=== PATIENT | female | born 1950 | race Caucasian/White ===

== ENCOUNTER 2018-12-05 15:49 | Emergency (ER) | payer OTHER, MEDICARE ==
[2018-12-05 16:12] VITALS: BP 135/98; PULSE 64; TEMP 98.3; BMI 24.0
--- NOTE | 2018-12-05 16:17 | PDOC ---
History of Present Illness - General Chief Complaint: Chest Pain Stated Complaint: CHEST PAIN Time Seen by Provider: 12/05/18 16:16 - History of Present Illness Initial Comments: 12/05/18 17:28 HPI: 68 y/o F with hx of polymylagia rheumatica, chronic pain on chronic narcotics, hypothyroid, panic disorder, HTN presenting with 2 days of midsternal chest pain and wholebody pain. She states she was in an argument wither her mother and became very stressed and started having the pain. The chest pain is nonradiating and is described as "annoying sensation;" denies any sharpness, pressure like, crushing. Pain is intermittent and different than her usual panic attacks. She denies any fever, chills, LH, AN, dizziness, palpaitations, SOB, change in vision, diaphoresis, syncope, nausea, emesis. Of note, she also reports a "knot like" pain in her stomach and her whole body. She says she is usually constipated do to the narcotic use, but last BM was yesterday after assist with self manual disimpaction. She takes sennokot but it doesnt not always work. She has been on narcotics for years and has never been weaned; reports good pain control with advil as well but needs narcotics for additional pain control. Additionally, patient's father recently and she reports decreased interest, difficulty sleeping, poor appetite, low energy; denies suicidality PMHx: as noted above ROS: as noted SHx: 0.5-1 ppd; no alcohol use; no rec drugs Allergies: NKDA Past History - Past Medical History Allergies/Adverse Reactions: Allergies Allergy/AdvReac Type Severity Reaction Status Date / Time codeine Allergy Verified 12/05/18 16:07 meperidine [From Demerol] Allergy Verified 12/05/18 16:07 NSAIDS (Non-Steroidal Allergy Verified 12/05/18 16:07 Anti-Inflamma Penicillins Allergy Verified 12/05/18 16:07 colloidal bismuth subcitrate AdvReac Verified 12/05/18 16:07 [From Pylera] metronidazole [From Pylera] AdvReac Verified 12/05/18 16:07 tetracycline [From Pylera] AdvReac Verified 12/05/18 16:07 COPD: Yes HTN: Yes Psychiatric Problems: Yes Seizures: Yes ([place]) Other medical history: polymelagia - Suicide/Smoking/Psychosocial Hx Smoking History: Never smoked Have you smoked in the past 12 months: No Information on smoking cessation initiated: No Review of Systems - Review of Systems Comments:: 12/05/18 18:07 GENERAL/CONSTITUTIONAL: No fever or chills. No weakness. HEAD, EYES, EARS, NOSE AND THROAT: No change in vision. No ear pain or discharge. No sore throat. CARDIOVASCULAR: +chest pain, no shortness of breath RESPIRATORY: No cough, wheezing, or hemoptysis. GASTROINTESTINAL: No nausea, vomiting, diarrhea or constipation. GENITOURINARY: No dysuria, frequency, or change in urination. MUSCULOSKELETAL: +joint and muscle pain SKIN: No rash NEUROLOGIC: No headache, vertigo, loss of consciousness, or change in strength/ sensation. ENDOCRINE: No increased thirst. No abnormal weight change HEMATOLOGIC/LYMPHATIC: No anemia, easy bleeding, or history of blood clots. ALLERGIC/IMMUNOLOGIC: No hives or skin allergy. *Physical Exam - Vital Signs Last Vital Signs Temp Pulse Resp BP Pulse Ox 98.3 F 64 18 135/98 96 12/05/18 16:08 12/05/18 16:08 12/05/18 16:08 12/05/18 16:08 12/05/18 16:08 - Physical Exam Comments: 12/05/18 18:08 GENERAL: Awake, alert, and fully oriented, in no acute distress HEAD: No signs of trauma, normocephalic, atraumatic EYES: PERRLA, EOMI, sclera anicteric, conjunctiva clear ENT: Auricles normal inspection, hearing grossly normal, nares patent, oropharynx clear without exudates. Moist mucosa NECK: Normal ROM, supple, no lymphadenopathy, JVD, or masses LUNGS: No distress, speaks full sentences, clear to auscultation bilaterally HEART: Regular rate and rhythm, normal S1 and S2, no murmurs, rubs or gallops, peripheral pulses normal and equal bilaterally. ABDOMEN: Soft, nontender, normoactive bowel sounds. No CVAT No guarding, no rebound. No masses EXTREMITIES : Normal inspection, Normal range of motion, no edema. No clubbing or cyanosis. NEUROLOGICAL: Cranial nerves II through XII grossly intact. Normal speech, normal gait, no focal sensorimotor deficits SKIN: Warm, Dry, normal turgor, no rashes or lesions noted ED Treatment Course - LABORATORY CBC & Chemistry Diagram: 12/05/18 18:07 12/05/18 18:07 Medical Decision Making - Medical Decision Making 12/05/18 18:08 68 y/o F with hx of polymylagia rheumatica, chronic pain on chronic narcotics, hypothyroid, panic disorder, HTN presenting with 2 days of midsternal chest pain and wholebody pain associated with depressive like symptoms. Vitals wnl. PE unremarkable -CXR, EKG -CBC, CMP, trops 12/05/18 18:45 EKG: NSR with absent MELISA, STD. Nml interval duration and axis. Nml R wave progression. Absent Q waves 12/05/18 19:[address] Allen to followup CMP, trop, and imaging *DC/Admit/Observation/Transfer Diagnosis at time of Disposition: Chest pain Qualifiers: Chest pain type: unspecified Qualified Code(s): R07.9 - Chest pain, unspecified - Discharge Dispostion Decision to Admit order: No - Referrals Referrals: Rafa Allen MD [Primary Care Provider] - - Patient Instructions - Post Discharge Activity
[2018-12-05 18:27] LABS: BASO % 1.3 % (0-2.0); EOS % 4.8 % (0-4.5); HEMATOCRIT 33.6 % (32.4-45.2); HEMOGLOBIN 11.1 GM/dL (10.7-15.3); LYMPH % 36.8 % (8-40); MCH 31.4 pg (25.7-33.7); MCHC 33.1 g/dl (32.0-36.0); MEAN CELL VOLUME 94.9 fl (80-96); MEAN PLT VOLUME 7.5 fl (7.5-11.1); MONO % 7.9 % (3.8-10.2); NEUT % 49.2 % (42.8-82.8); PLATELET COUNT 305 K/MM3 (134-434); RBC 3.54 M/mm3 (3.60-5.2); RDW 15.3 % (11.6-15.6); WHITE BLOOD COUNT 5.7 K/mm3 (4.0-10.0)
--- NOTE | 2018-12-05 18:41 | PDOC ---
Documentation entered by Ailyn Rich SCRIBE, acting as scribe for Laury Deluna DO. Laury Deluna DO: This documentation has been prepared by the Hilario hector Sammi, SCRIBE, under my direction and personally reviewed by me in its entirety. I confirm that the documentation accurately reflects all work, treatment, procedures, and medical decision making performed by me. Attending Attestation - Resident Resident Name: Radha Brady - ED Attending Attestation I have performed the following: I have examined & evaluated the patient, The case was reviewed & discussed with the resident, I agree w/resident's findings & plan, Exceptions are as noted - HPI HPI: 12/05/18 17:35 The patient is a 68 year old female, with a significant PMH of chronic pain, arthritis, panic disorder, who presents to the emergency department for evaluation of 2 days of intermittent midsternal chest pain and a weird sensation throughout her whole body s/p having a fight with her mother 2 days ago. 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 She notes chronic constipation and a last bowel movement of yesterday. Denies radiation to extremities, SOB, cough, fever or chills. Allergies: NKA Surgical history: appendectomy PCP: [facility] [employer]: someone in the city - Physicial Exam PE: 12/05/18 17:56 GENERAL: Awake, alert, and fully oriented, in no acute distress EYES: PERRLA, EOMI, sclera anicteric, conjunctiva clear ENT: Auricles normal inspection, hearing grossly normal, nares patent, oropharynx clear without exudates. Moist mucosa NECK: Normal ROM, supple, no lymphadenopathy, JVD, or masses LUNGS: Breath sounds equal, clear to auscultation bilaterally. No wheezes, and no crackles HEART: Regular rate and rhythm, normal S1 and S2, no murmurs, rubs or gallops ABDOMEN: No acute tenderness. Soft, normoactive bowel sounds. No guarding, no rebound. No masses. No CVA tenderness. EXTREMITIES: (+)trace ankle edema. No calf tenderness. Full range of motion. No clubbing or cyanosis. No cords, erythema, or tenderness NEUROLOGICAL: Cranial nerves II through XII grossly intact. Normal speech, normal gait SKIN: Warm, Dry, normal turgor, no rashes or lesions noted. - Medical Decision Making 12/05/18 18:34 I, Dr. Laury Deluna, DO, attest that this document has been prepared under my direction and personally reviewed by me in its entirety. I further attest, that it accurately reflects all work, treatment, procedures and medical decision -making performed by me. 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 The patient understands the risks and complications that may result from the refusal of medical care and admission which includes and permanent disability. The patient has the mental capacity of understanding the risks of refusing care and is capable of making an informed decision. The patient was instructed to return to the emergency department should she change her mind regarding medical care or should her condition worsen. The patient signed the Against Medical Advice form. Heart Score/ECG Review - ECG Intrepretation Comment:: 12/05/18 18:40 sinus at 60, L axis, nl interval, q waves septally which are age indeterminate, t wave inversions III which are nonspecific, no acute st changes
[2018-12-05 19:00] LABS: ALBUMIN 3.5 g/dl (3.4-5.0); BILIRUBIN,TOTAL 0.2 mg/dL (0.2-1); BLOOD UREA NITROGEN 15.1 mg/dL (7-18); CALCIUM 9.5 mg/dL (8.5-10.1); CREATININE 0.9 mg/dL (0.55-1.3); POTASSIUM 4.3 mmol/L (3.5-5.1)
--- NOTE | 2018-12-05 19:19 | PDOC ---
*Physical Exam - Vital Signs Last Vital Signs Temp Pulse Resp BP Pulse Ox 98.3 F 64 18 135/98 96 12/05/18 16:08 12/05/18 16:08 12/05/18 16:08 12/05/18 16:08 12/05/18 16:08 ED Treatment Course - LABORATORY CBC & Chemistry Diagram: 12/05/18 18:07 12/05/18 18:07 - ADDITIONAL ORDERS Additional order review: Laboratory Results 12/05/18 12/05/18 18:07 18:07 Sodium 142 Potassium 4.3 Chloride 105 Carbon Dioxide 33 H Anion Gap 4 L BUN 15.1 Creatinine 0.9 Est GFR (CKD-EPI)AfAm 76.68 Est GFR (CKD-EPI)NonAf 66.16 Random Glucose 74 Calcium 9.5 Total Bilirubin 0.2 AST 19 ALT 19 Alkaline Phosphatase 63 Troponin I < 0.02 Total Protein 7.0 Albumin 3.5 12/05/18 18:07 RBC 3.54 L MCV 94.9 MCHC 33.1 RDW 15.3 MPV 7.5 Neutrophils % 49.2 Lymphocytes % 36.8 Monocytes % 7.9 Eosinophils % 4.8 H Basophils % 1.3 Medical Decision Making - Medical Decision Making Pt was signed out to me by resident Dr. Brady, who explained the presentation , ED course, any pending results, and needed interventions. Pending results include chest x-ray, upright abdominal x-ray, and second troponin at 9:15 pm. Pt is currently stable and is lying comfortably. 12/05/18 19:18 Chest x-ray without acute pathology Upright x-ray showed constipation. Pt refused to stay for second troponin and additional cardiac monitoring. Note: The patient insists on leaving the emergency dept and is signing out against medical advice. The patient understands the risks and complications that may result from the refusal of medical care and admission which includes and permanent disability. The patient has the mental capacity of understanding the risks of refusing care and is capable of making an informed decision. The patient was instructed to return to the emergency department should she change her mind regarding medical care or should her condition worsen. The patient signed the Against Medical Advice form. 12/05/18 19:58 *DC/Admit/Observation/Transfer Diagnosis at time of Disposition: Chest pain Qualifiers: Chest pain type: unspecified Qualified Code(s): R07.9 - Chest pain, unspecified - Discharge Dispostion Disposition: AGAINST MEDICAL ADVICE Condition at time of disposition: Good Decision to Admit order: No - Referrals Referrals: Rafa Allen MD [Primary Care Provider] - - Patient Instructions Printed Discharge Instructions: DI for Atypical Chest Pain Additional Instructions: You were seen in the ER today for chest pain. The results of your labs and imaging today were normal and showed some constipation, but you did not wish to stay for further cardiac enzyme testing. Please follow-up with your primary care doctor within 1-2 days to discuss your visit and make sure your symptoms have improved. Please return to the ER if you have any worsening pain, development of fevers or chills, loss of consciousness, inability to tolerate food or fluids, or any other concerns. - Post Discharge Activity
--- NOTE | 2018-12-06 10:32 | EKG ---
Test Reason : Blood Pressure : / mmHG Vent. Rate : 060 BPM Atrial Rate : 060 BPM P-R Int : 170 ms QRS Dur : 078 ms QT Int : 404 ms P-R-T Axes : 031 -33 -07 degrees QTc Int : 404 ms POOR DATA QUALITY, INTERPRETATION MAY BE ADVERSELY AFFECTED NORMAL SINUS RHYTHM LEFT AXIS DEVIATION SEPTAL INFARCT , AGE UNDETERMINED ABNORMAL ECG NO PREVIOUS ECGS AVAILABLE Confirmed by MARIANNE DURAN, FIONA ([id number]) on 12/06/2018 10:32:33 AM Referred By: Confirmed By:FIONA LOPES MD
== END 2018-12-05 20:06 | disposition left against medical advice (07) ==
LOC: JER 15:49
DX: R07.9 Chest pain, unspecified (principal); M35.3 Polymyalgia rheumatica; I10 Essential (primary) hypertension; E03.9 Hypothyroidism, unspecified; F41.0 Panic disorder [episodic paroxysmal anxiety]; G89.29 Other chronic pain
CPT/HCPCS: 36415; 71046-TC-FY; 74019-TC-FY; 80053; 84484; 85025; 93005; 93010; 99283-25